=== PATIENT | male | born 1960 | race Caucasian/White ===

== ENCOUNTER 2020-09-01 15:15 | Inpatient (IN) | payer OTHER ==
[~2020-09-01] VITALS: Ht 175.3 cm; Wt 54.4 kg
[2020-09-01 17:06] LABS: HEMOGLOBIN 13.8 gm/dl (14.0-17.5); RED BLOOD COUNT 4.36 M/UL (4.20-5.50); WHITE BLOOD COUNT 3.9 K/UL (4.5-11.0)
[2020-09-01 17:21] LABS: BUN/CREATININE RATIO 16 (0-10)
[2020-09-02 04:49] LABS: HEMOGLOBIN 14.3 gm/dl (14.0-17.5); RED BLOOD COUNT 4.5 M/UL (4.20-5.50)
[2020-09-02 04:50] LABS: WHITE BLOOD COUNT 2.1 K/UL (4.5-11.0)
[2020-09-02 05:15] LABS: BUN/CREATININE RATIO 25 (0-10)
[2020-09-02] MEDS ORDERED: ASPIRIN 325MG325 MG PO (12:02)
[2020-09-02] MEDS ORDERED: VENTOLIN HFA 66.7 GM INH (12:02)
[2020-09-03 04:26] LABS: BUN/CREATININE RATIO 24 (0-10)
[2020-09-03 04:27] LABS: HEMOGLOBIN 13.3 gm/dl (14.0-17.5); RED BLOOD COUNT 4.2 M/UL (4.20-5.50)
[2020-09-03 04:34] LABS: WHITE BLOOD COUNT 5.9 K/UL (4.5-11.0)
[2020-09-04 04:11] LABS: HEMOGLOBIN 12.9 gm/dl (14.0-17.5); RED BLOOD COUNT 4.11 M/UL (4.20-5.50); WHITE BLOOD COUNT 6.2 K/UL (4.5-11.0)
[2020-09-04 04:49] LABS: BUN/CREATININE RATIO 27 (0-10)
[2020-09-04] MEDS ORDERED: ROBITUSSIN DM UD5 ML PO (11:04)
[2020-09-04] MEDS ORDERED: AMLODIPINE BESYL5 MG PO (11:04)
[2020-09-04] MEDS ORDERED: MEDROL DOSEPAK 24 MG PO (11:04)
[2020-09-04] MEDS ORDERED: OMNICEF 300 MG300 MG PO (11:06)
[2020-09-04] MEDS ORDERED: AZITHROMYCIN250 MG PO (11:06)
== END 2020-09-04 13:21 | disposition home or self-care (01) | DRG 177 ==
LOC: ER1 15:15 → M/S 18:23 → CDU 18:23 → M/S 19:48
PROVIDERS: Emergency Medicine; Physician Assistant Medical; ADMIT Family Medicine
PROC: 8E0ZXY6 Isolation (ICD-10-PCS; principal; 2020-09-01)
PROC: XW033E5 Introduction of Remdesivir Anti-infective into Peripheral Vein, Percutaneous Approach, New Technology Group 5 (ICD-10-PCS; 2020-09-01)
PROC: 3E0333Z Introduction of Anti-inflammatory into Peripheral Vein, Percutaneous Approach (ICD-10-PCS; 2020-09-01)
DX: U07.1 COVID-19 (principal); J96.01 Acute respiratory failure with hypoxia; J12.82 Pneumonia due to coronavirus disease 2019; J18.9 Pneumonia, unspecified organism; J44.1 Chronic obstructive pulmonary disease with (acute) exacerbation; J44.0 Chronic obstructive pulmonary disease with (acute) lower respiratory infection; E87.1 Hypo-osmolality and hyponatremia; N17.9 Acute kidney failure, unspecified; F17.200 Nicotine dependence, unspecified, uncomplicated; D72.819 Decreased white blood cell count, unspecified; I10 Essential (primary) hypertension; Z85.828 Personal history of other malignant neoplasm of skin; Z90.49 Acquired absence of other specified parts of digestive tract; Z98.890 Other specified postprocedural states
CPT/HCPCS: 0240U; 36415; 36600; 70450; 71045; 80048; 80053; 80061; 81001; 82550; 82553; 82803; 83036; 83605; 83735; 83874; 83880; 84484; 85025; 85027; 85379; 85610; 86140; 87040; 94640; 94664; 94760; 96374; 99285; J0456; J0696; J1100; J1650; J7030; Q9967

== ENCOUNTER → 2021-08-15 | Outpatient (CLI) | payer OTHER ==
[~2021-08-15] MED LIST: AMLODIPINE BESYL5 MG PO; ASPIRIN 325MG325 MG PO; AZITHROMYCIN250 MG PO; MEDROL DOSEPAK 24 MG PO; OMNICEF 300 MG300 MG PO; ROBITUSSIN DM UD5 ML PO; VENTOLIN HFA 66.7 GM INH
== END ==
LOC: KOH-I 13:26
DX: M54.50 Low back pain, unspecified (principal); R05.9 Cough, unspecified; M50.321 Other cervical disc degeneration at C4-C5 level; M51.34 Other intervertebral disc degeneration, thoracic region
CPT/HCPCS: 71046; 72040; 72070; 72100

== ENCOUNTER 2022-01-04 20:59 | Emergency (ER) | payer OTHER ==
[2022-01-04 22:01] LABS: HEMOGLOBIN 15.2 gm/dl (14.0-17.5); RED BLOOD COUNT 4.62 M/UL (4.20-5.50); WHITE BLOOD COUNT 5.3 K/UL (4.5-11.0)
[2022-01-04 22:19] LABS: BUN/CREATININE RATIO 21 (0-10)
[2022-01-05] MEDS ORDERED: PREDNISONE20 MG PO (00:02)
[2022-01-05] MEDS ORDERED: IPRAT-ALBUT 0.5-3 ML INH (00:02)
== END 2022-01-05 01:20 | disposition home or self-care (01) ==
LOC: ER1 20:59
PROVIDERS: Family Medicine
DX: U07.1 COVID-19 (principal); J44.1 Chronic obstructive pulmonary disease with (acute) exacerbation; F17.200 Nicotine dependence, unspecified, uncomplicated; I10 Essential (primary) hypertension; Z79.899 Other long term (current) drug therapy
CPT/HCPCS: 0240U; 36600; 71045; 80053; 82550; 82553; 82803; 83605; 83880; 84484; 85025; 85610; 93005; 94664; 96374; 99285; J2930; M0222